=== PATIENT | male | born 1975 ===

== ENCOUNTER 2025-03-23 16:44 | Emergency (ER) | payer OTHER, SELFPAY ==
[2025-03-23 16:55] VITALS: BP 137/86; PULSE 97; RESP 16; TEMP 36.4; O2SAT 96; BMI 26.2
--- NOTE | 2025-03-23 17:34 | ED_ITS ---
HPI - General Adult General Chief complaint: Animal Bite Stated complaint: Bit by raccoon on the back of R leg Time Seen by Provider: 03/23/25 16:58 Source: patient Mode of arrival: ambulatory Limitations: no limitations History of Present Illness HPI narrative: 49-year-old male presenting today after being bitten by a raccoon this morning. Patient states that he was clearing around his truck when he believes he stepped on it. The animal bit him and ran away. Patient does not believe that he has been vaccinated for rabies. Unsure of his last tetanus shot. Related Data Previous Rx's ?Medication ?Instructions ?Recorded amoxicillin 875 mg-potassium 1 tab PO BID 5 days #10 t abs 03/23/25 clavulanate 125 mg tablet Allergies Allergy/AdvReac Type Severity Reaction Status Date / Time No Known Drug Allergies Allergy Verified 03/23/25 16:51 Review of Systems Status of ROS: Reports: 6 or more systems reviewed and unremarkable except as noted in History and below Exam Narrative: Exam Narrative: Well-nourished well-developed patient in no acute distress. Alert and oriented. Answers questions Appropriately. HEENT: Normocephalic atraumatic. Pupils are equally round reactive to light. Extraocular muscles are intact. Conjunctivae are moist without any icterus noted. Moist mucous membranes. Extremities: Bilateral lower extremities are without edema. Normal DP and PT pulses. Patient has a bite wound on both sides of his Achilles tendon. There is no significant swelling or erythema. No pain with flexion or extension of the ankle. The bite breaks through the skin, but is superficial. Skin: Well perfused. Const: Vital Signs, click to edit/add: Vital Signs - 24 hr 03/23/25 16:55 Temperature 97.6 F Pulse Rate [Pulse Oximeter] 97 Respiratory Rate 16 Blood Pressure [Ri ght Upper Arm] 137/86 Pulse Oximetry 96 Oxygen Delivery Me thod Room Air Course Course ED Course: Rabies immune globulin was infiltrated around the wound and the remainder was given as an IM vaccination to the right deltoid. Patient was also given rabies vaccine and tetanus shot today. Vital Signs Vital signs: Initial Vital Signs Temperature 97.6 F 03/23/25 16:55 Temperature Source Temporal Artery Scan 03/23/25 16:55 Pulse Rate 97 03/23/25 16:55 Respiratory Rate 16 03/23/25 16:55 Blood Pressure 137/86 09/25/25 16:55 Blood Pressure Mean 103 03/23/25 16:55 Blood Pressure Position Sitting 03/23/25 16:55 Pulse Oximetry 96 03/23/25 16:55 Oxygen Delivery Method Room Air 03/23/25 16:55 Vital Signs Temperature 97.6 F 03/23/25 16:55 Pulse Rate 97 03/23/25 16:55 Respiratory Rate 16 03/23/25 16:55 Blood Pressure 137/86 03/23/25 16:55 Pulse Oximetry 96 03/23/25 16:55 Oxygen Delivery Method Room Air 03/23/25 16:55 Temperature 97.6 F 03/23/25 16:55 Pulse Rate 97 03/23/25 16:55 Respiratory Rate 16 03/23/25 16:55 Blood Pressure 137/86 03/23/25 16:55 Pulse Oximetry 96 03/23/25 16:55 Oxygen Delivery Method Room Air 03/23/25 16:55 Medical Decision Making MDM Narrative Medical decision making narrative: 41-year-old male status post raccoon bite. Patient will be sent home with a prescription for rabies vaccinations on day 3, 7 and 14. Will also put the patient on him Augmentin for 5 days. Discharge Plan Discharge Clinical Impression: Bite by animal, Rabies contact Patient Disposition: Home, Self-Care Condition: Stable Additional Instructions: You will need to have the rabies vaccine series. A prescription will be sent home with you with the appropriate states which will be 03/26, and 04/06. Also recommend you take all antibiotics as prescribed as these bites have a high risk of bacterial infection. Prescriptions: New amoxicillin-pot clavulanate 875-125 mg tablet 1 tab PO BID 5 Days Qty: 10 0RF Follow Up/Referrals: Provider,Not a Local [Primary Care Provider, Family Practice] Stand Alone Forms: DNP [employer] Info Instructions
[2025-03-23] MEDS: RABIES VACCINE (RABAVERT) 2.5 UNIT IM (17:48)
[2025-03-23] MEDS: TETANUS/DIPHTH/PERTUSSIS 0.5 ML SYRINGE IM (17:55)
[2025-03-23] MEDS: RABIES IMMUNE GLOBULIN 150 UNIT/ML INJ 1755 UNIT INFILTRATI (18:10)
== END 2025-03-23 18:14 | disposition home or self-care (01) ==
PROVIDERS: Emergency Provider Family Medicine
DX: S81.851A Open bite, right lower leg, initial encounter (principal); W55.51XA Bitten by raccoon, initial encounter; Z23 Encounter for immunization; Z20.3 Contact with and (suspected) exposure to rabies
CPT/HCPCS: 90377; 90471; 90472; 90715; 99283; 99284; 90675